=== PATIENT | female | born 1965 ===

== ENCOUNTER 2024-06-03 07:32 | Day surgery (SDC) | payer OTHER ==
[2024-06-03] MEDS ORDERED: VITAMIN D325 MC3 PO (13:11)
[2024-06-03] MEDS ORDERED: ALPR.25 PO (13:11)
[2024-06-03] MEDS ORDERED: Lisinopril2.5 MG PO (13:12)
[2024-06-03] MEDS ORDERED: METHYL B-121000 MCG PO (13:13)
[2024-06-03] MEDS ORDERED: PIOG15 PO (13:13)
[2024-06-03] MEDS ORDERED: METF500 PO (13:13)
[2024-06-03] MEDS ORDERED: TERB250 PO (13:14)
[2024-06-03] MEDS ORDERED: ZOCOR20 MG PO (13:14)
== END 2024-06-04 01:42 | disposition home or self-care (01) ==
LOC: MOI US 07:32
DX: C50.919 Malignant neoplasm of unspecified site of unspecified female breast (principal)
CPT/HCPCS: 19285; 77065; A4648; G0279

== ENCOUNTER 2024-06-06 07:23 | Day surgery (SDC) | payer OTHER ==
[~2024-06-06] VITALS: Ht 170.2 cm; Wt 105.8 kg
[2024-06-06] VITALS (7 sets, daily range): BP systolic 131–154; BP diastolic 74–94
[~2024-06-06 07:23] MED LIST: ALPR.25 PO; Lisinopril2.5 MG PO; METF500 PO; METHYL B-121000 MCG PO; PIOG15 PO; TERB250 PO; VITAMIN D325 MC3 PO; ZOCOR20 MG PO
[2024-06-06] MEDS ORDERED: Lactated Ringer's 1,000 ML IV SCH (07:40)
[2024-06-06] MEDS ORDERED: CeFAZolin Sodium 2,000 MG in NS 100 ML IV SCH (07:40)
[2024-06-06] MEDS ORDERED: MELO7.5 PO (08:12)
--- NOTE | 2024-06-06 08:13 | NUR ---
Ambulatory in Day Surgery History, Chart, Medications and Allergies reviewed before start of procedure. Pre-Op teaching done. Pt verbalizes understanding. Patient States Post-Procedure ride home has been arranged.
[2024-06-06] MEDS ORDERED: Bupivacaine 0.5% HCl 5 MG/ML 30MLVIAL ONE (08:27)
[2024-06-06] MEDS ORDERED: Methylene Blue 1% 100 MG/10 ML VIAL ONE (08:27)
[2024-06-06] MEDS ORDERED: Midazolam HCl 1MG / ML 2ML Vial IV SCH (08:45)
[2024-06-06] MEDS ORDERED: Midazolam HCl 1MG / ML 2ML Vial ONE (08:47)
[2024-06-06] MEDS ORDERED: propofoL 20 ML IV ONE (08:55)
[2024-06-06] MEDS ORDERED: FentaNYL Citrate 50 MCG/ML 2 ML Injection ONE (08:55)
--- NOTE | 2024-06-06 08:59 | NUR ---
DENTURES REMAINED IN FOR SURGERY. GLASSES PLACED IN PACU.
[2024-06-06] MEDS ORDERED: CeFAZolin Sodium 1000 mg Vial ONE (09:02)
[2024-06-06] MEDS ORDERED: Dexamethasone Sod Phos 10 MG/ML 1ML VIAL ONE (09:03)
[2024-06-06] MEDS ORDERED: Ondansetron HCl 2 MG / ML 2ML Vial ONE (09:03)
[2024-06-06] MEDS ORDERED: Phenylephrine HCl 100 MCG/ML-NS 10MLSYR (1MG/10ML) ONE (09:17)
[2024-06-06] MEDS ORDERED: HYDROcodone 5-APAP 325 TAB PO PRN (10:10)
--- NOTE | 2024-06-06 10:40 | NUR ---
PATIENT AWAKE AND ENGAGING IN CONVERSATION. SPOUSE AT BEDSIDE. TOLERATING SIPS OF CLEAR LIQUID.
--- NOTE | 2024-06-06 10:41 | NUR ---
STERI STRIP AND 4X4 GAUZE DRSGS INTACT TO LEFT BREAST UNDER BREAST BINDER. NO VISIBLE DRAINAGE, SWELLING, ERYTHEMA OR BRUISING NOTED UNDER BINDER. Discharge instructions reviewed with patient. Patient verbalizes understanding. Copy given to patient to take home.
--- NOTE | 2024-06-06 10:46 | NUR ---
PATIENT DECLINES ICE THERAPY AT THIS TIME.
--- NOTE | 2024-06-06 10:59 | NUR ---
UP TO DRESS. GAIT STEADY. GLASSES RETURNED TO PATIENT.
--- NOTE | 2024-06-06 11:06 | NUR ---
VSS AND NO C/O OF PAIN OR NAUSEA VERBALIZED. PATIENT DENIES PAIN BUT REPORTED MILD BURNING SENSATION AT SURGERY SITE. PATIENT BELONGINGS RETURNED TO PATIENT.
== END 2024-06-06 11:06 | disposition home or self-care (01) ==
LOC: ORSCMMR 07:23 → ORD 09:00 → ORSCMMR 09:00
PROVIDERS: Surgery
PROC: 0HBU0ZZ Excision of Left Breast, Open Approach (ICD-10-PCS; principal; 2024-06-06 09:00)
DX: C50.912 Malignant neoplasm of unspecified site of left female breast (principal); Z17.1 Estrogen receptor negative status [ER-]; I10 Essential (primary) hypertension; E11.9 Type 2 diabetes mellitus without complications; K21.9 Gastro-esophageal reflux disease without esophagitis; Z68.36 Body mass index [BMI] 36.0-36.9, adult; E78.5 Hyperlipidemia, unspecified; Z79.899 Other long term (current) drug therapy; Z79.84 Long term (current) use of oral hypoglycemic drugs
CPT/HCPCS: 82947; 88307; J0690; J1100; J2250; J2371; J2405; J2704; J3010; J7120; Q9968

== ENCOUNTER 2024-06-17 09:19 | Day surgery (SDC) | payer OTHER ==
[2024-06-17] VITALS (10 sets, daily range): BP systolic 88–151; BP diastolic 48–89
[~2024-06-17] VITALS: Ht 170.2 cm; Wt 106.8 kg
[~2024-06-17 09:19] MED LIST changes: +Bupivacaine 0.5% HCl 5 MG/ML 30MLVIAL ONE; +CeFAZolin Sodium 2,000 MG in NS 100 ML IV SCH; +Lactated Ringer's 1,000 ML IV SCH; +MELO7.5 PO
[2024-06-17] MEDS ORDERED: Midazolam HCl 1MG / ML 2ML Vial ONE (10:34)
[2024-06-17] MEDS ORDERED: Midazolam HCl 1MG / ML 2ML Vial IV SCH (10:35)
[2024-06-17] MEDS ORDERED: propofoL 20 ML IV ONE (10:43)
[2024-06-17] MEDS ORDERED: FentaNYL Citrate 50 MCG/ML 2 ML Injection ONE ×2 (10:44→11:59)
[2024-06-17] MEDS ORDERED: Ketorolac Tromethamine 30mg Vial ONE (11:07)
[2024-06-17] MEDS ORDERED: Dexamethasone Sod Phos 10 MG/ML 1ML VIAL ONE (11:07)
[2024-06-17] MEDS ORDERED: Ondansetron HCl 2 MG / ML 2ML Vial ONE (11:07)
[2024-06-17] MEDS ORDERED: HYDROcodone 5-APAP 325 TAB PO PRN (11:40)
--- NOTE | 2024-06-17 12:17 | NUR ---
PT TO DAY SURGERY FROM PACU WITH LEFT BREAST LUMPECTOMY MARGIN; BEDSIDE REPORT RECEIVED. PT IS AWAKE, ALERT AND ORIENTED; ABLE TO MOVE SELF IN BED. VSS. PT HAS INCISION TO LEFT BREAST THAT HAS A STERI STRIP IN PLACE AND GUAZE OVER THAT THAT IS C/D/I, BREAST BINDER IS IN PLACE. AT BEDSIDE.
--- NOTE | 2024-06-17 12:42 | NUR ---
PT TOLERATING PO FLUIDS. PT HAS GLASSES ON FACE. Discharge instructions reviewed with patient. Patient verbalizes understanding. Copy given to patient to take home. Patient States Post-Procedure ride home has been arranged.
--- NOTE | 2024-06-17 12:48 | NUR ---
PT DECLINES ICE PACK
--- NOTE | 2024-06-17 13:02 | NUR ---
Patient up to Ambulate independently. Gait steady. Discharged via wheelchair to private car for ride home.
== END 2024-06-17 13:03 | disposition home or self-care (01) ==
LOC: ORSCMMR 09:19 → ORD 10:30 → ORSCMMR 10:30 → ORD 11:30 → ORSCMMR 13:03
PROVIDERS: Surgery
PROC: 0HBU0ZZ Excision of Left Breast, Open Approach (ICD-10-PCS; principal; 2024-06-17 10:30)
DX: C50.912 Malignant neoplasm of unspecified site of left female breast (principal); E78.5 Hyperlipidemia, unspecified; I10 Essential (primary) hypertension; E11.9 Type 2 diabetes mellitus without complications; E66.9 Obesity, unspecified; Z68.36 Body mass index [BMI] 36.0-36.9, adult; Z79.84 Long term (current) use of oral hypoglycemic drugs; Z79.899 Other long term (current) drug therapy
CPT/HCPCS: 82947; 88307; A9270; J0690; J1100; J1885; J2250; J2405; J2704; J3010; J7120

== ENCOUNTER 2024-11-30 19:35 | Emergency (ER) | payer OTHER ==
[~2024-11-30] VITALS: Ht 170.2 cm; Wt 113.4 kg
[~2024-11-30 19:35] MED LIST changes: -Bupivacaine 0.5% HCl 5 MG/ML 30MLVIAL ONE; -CeFAZolin Sodium 2,000 MG in NS 100 ML IV SCH; -Lactated Ringer's 1,000 ML IV SCH
[2024-11-30 20:08] LABS: BASOPHILS ABSOLUTE AUTO 0.03 K/mm3 (0.00-0.23); BASOPHILS PERCENT AUTO 1 % (0-2); EOSINOPHILS ABSOLUTE AUTO 0.09 K/mm3 (0.00-0.68); EOSINOPHILS PERCENT AUTO 2 % (0-6); Hematocrit 40.7 % (33.0-51.0); Hemoglobin 13.7 g/dL (11.5-16.0); IMMATURE GRAN ABSOLUTE AUTO 0.01 K/mm3 (0.00-0.10); IMMATURE GRAN PERCENT AUTO 0 % (0-1); LYMPHOCYTES PERCENT AUTO 32 % (21-46); MONOCYTES ABSOLUTE AUTO 0.41 K/mm3 (0.16-1.47); MONOCYTES PERCENT AUTO 7 % (4-13); Mean Corpuscular HGB 31.2 pg (26.0-34.0); Mean Corpuscular HGB Conc 33.7 g/dL (31.5-36.5); Mean Corpuscular Volume 93 fL (80-100); Mean Platelet Volume 10.1 fL (9.1-12.4); NEUTROPHILS ABSOLUTE AUTO 3.43 K/mm3 (1.96-9.15); NEUTROPHILS PERCENT AUTO 58 % (41-73); Platelet Count 229 K/mm3 (150-400); RDW Coefficient Variation 12.6 % (11.7-14.2); RDW Standard Deviation 43.3 fL (35.1-46.3); Red Blood Cell Count 4.39 M/mm3 (3.80-5.20); White Blood Cell Count 5.87 K/mm3 (4.00-11.30)
[2024-11-30 20:21] LABS: Albumin, Blood 3.9 g/dL (3.4-5.0); Albumin/Globulin Ratio 1.1 (0.8-1.8); Bilirubin, Total 0.4 mg/dL (0.1-1.0); Bun/Creatinine Ratio 19.8 (12.0-20.0); Calcium, Blood 9.8 mg/dL (8.5-10.1); Creatinine, Blood 0.71 mg/dL (0.40-1.00); Globulin, Blood 3.6 g/dL (2.2-4.0); Potassium, Blood 4.1 mmol/L (3.5-5.5); Total Protein, Blood 7.5 g/dL (6.4-8.2)
[2024-11-30] MEDS ORDERED: Morphine Sulfate 4 MG/1 ML Injection IV ONE (21:55)
[2024-11-30] MEDS ORDERED: Mag Hydrox/AL Hydrox/Simeth 30 ML UDC PO ONE (23:55)
[2024-11-30] MEDS ORDERED: Lidocaine 2% Viscous Soln 15 ML UDC PO ONE (23:55)
== END 2024-12-01 00:18 | disposition home or self-care (01) ==
LOC: ER 19:35
PROVIDERS: Emergency Medicine
DX: R10.13 Epigastric pain (principal); Z88.8 Allergy status to other drugs, medicaments and biological substances; Z79.899 Other long term (current) drug therapy; Z79.84 Long term (current) use of oral hypoglycemic drugs
CPT/HCPCS: 71046; 71275; 80053; 83690; 84484; 85025; 93005; 93010; 96374; 99285-25; A9270; J2270; Q9967